=== PATIENT | male | born 1975 | race American Indian/Alaskan Native ===

== ENCOUNTER 2016-12-11 15:46 | Inpatient (IN) | payer SELFPAY ==
--- NOTE | 2016-12-11 16:56 | XRay Report ---
Chest 2 views. History: Chest pain. Findings: The heart, lungs, and pulmonary vessels are within normal limits. Impression: Normal study.
[2016-12-11 17:03] LABS: Hemoglobin 19.1 gm/dl (11.8-15.2); Mean Corpuscular HGB Conc 32 % (32-34); Mean Corpuscular Hemoglobin 29 pg (28-32); Mean Corpuscular Volume 90 fl (84-94); Platelet Count 321 K/mm3 (140-440); Red Blood Count 6.57 M/mm3 (3.65-5.03); Red Cell Distribution Width 14.9 % (13.2-15.2); White Blood Count 10.2 K/mm3 (4.5-11.0)
[2016-12-11 17:06] LABS: INR 0.89 (0.87-1.13)
[2016-12-11 17:07] LABS: Partial Thromboplastin Time 29.7 Sec. (24.2-36.6)
[2016-12-11 17:08] LABS: Sodium TNR mmol/L (137-145)
[2016-12-11 17:09] LABS: Alanine Aminotransferase TNR units/L (7-56); Anion Gap TNR mmol/L; BUN/Creatinine Ratio TNR; Bilirubin,Total TNR mg/dL (0.1-1.2); Blood Urea Nitrogen TNR mg/dL (9-20); Calcium TNR mg/dL (8.4-10.2); Carbon Dioxide TNR mmol/L (22-30); Chloride TNR mmol/L (98-107); Glucose TNR mg/dL (75-100); Potassium TNR mmol/L (3.6-5.0)
[2016-12-11 17:10] LABS: Albumin TNR g/dL (3.9-5); Albumin/Globulin Ratio TNR %; Alkaline Phosphatase TNR units/L (35-129); Lipase TNR units/L (13-60); Total Protein TNR g/dL (6.3-8.2)
[2016-12-11 17:35] LABS: Bilirubin,Urine NEG (Negative); Blood,Urine NEG (Negative); Ketones,Urine NEG (Negative); Leukocyte Esterase,Urine NEG (Negative); Mucus,Urine FEW /HPF; Nitrite,Urine NEG (Negative); Protein,Urine <15 mg/dL mg/dL (Negative); Urobilinogen,Urine < 2.0 mg/dL (<2.0); WBC,Urine < 1.0 /HPF (0.0-6.0)
[2016-12-11 17:38] LABS: Basophils % (Manual) 0 % (0.0-1.8); Blastocytes % (Manual) 0 %; Eosinophils % (Manual) 0 % (0.0-4.3)
[2016-12-11 17:39] LABS: Diff Status Complete; RBC Morphology Normal
[2016-12-11 18:24] LABS: Lipase 35 units/L (13-60)
[2016-12-11 18:38] LABS: Alanine Aminotransferase 28 units/L (7-56); Albumin 4.6 g/dL (3.9-5); Alkaline Phosphatase 81 units/L (35-129); Anion Gap 16 mmol/L; Blood Urea Nitrogen 13 mg/dL (9-20); Calcium 10.1 mg/dL (8.4-10.2); Carbon Dioxide 30 mmol/L (22-30); Chloride 90.2 mmol/L (98-107); Glucose 117 mg/dL (75-100); Potassium 3.7 mmol/L (3.6-5.0); Sodium 132 mmol/L (137-145); Total Protein 9.2 g/dL (6.3-8.2)
[2016-12-11] MEDS ORDERED: NORCO 5/325 PO ONE (20:50)
[2016-12-11] MEDS ORDERED: NORVASC PO ONE (20:50)
[2016-12-11] MEDS ORDERED: ZOFRAN ODT PO ONE (20:50)
[2016-12-11] MEDS ORDERED: NACL 0.9% 1000 ML 1,000 ML IV ONE (20:51)
[2016-12-11] MEDS ORDERED: PEPCID IV ONE (20:52)
[2016-12-11] MEDS ORDERED: ZOFRAN IV ONE (20:52)
--- NOTE | 2016-12-11 22:30 | Cat Scan Report ---
FINAL REPORT EXAM: CT HEAD/BRAIN WO CON HISTORY: Headache, Pressure, dizzy, HTN, TECHNIQUE: CT imaging acquired through the head without intravenous contrast. Transaxial reformations are provided. PRIORS: None. FINDINGS: The ventricles, cisterns and sulci are normal. No intraparenchymal or extra-axial mass, hemorrhage, or mass effect. Dominguez and white-matter differentiation is normal. Normal spherical shape of the globes. Paranasal sinuses and mastoid air cells are clear. No skull or facial fracture visualized. IMPRESSION: No acute intracranial abnormality.
[2016-12-11] MEDS ORDERED: NORMODYNE IV ONE (22:44)
--- NOTE | 2016-12-11 22:51 | Emergency Department Report ---
ED General Adult HPI - General Chief complaint: Chest Pain Stated complaint: CHEST PAIN/VOMITING Time Seen by Provider: 12/11/16 20:18 Source: patient Mode of arrival: Ambulatory Limitations: No Limitations - History of Present Illness Initial comments: 41-year-old male with a past medical history hypertension noncompliant with medications for at least 2 years presents to the hospital with multiple complaints. Complaint 1: headache 4 days. Patient complains of a global headache that is constant for the past 4 days. Patient patient have a sinus drainage and nasal congestion. Patient having intermittent dizziness. No complaints of weakness, numbness, blurred vision. No fever. Complaint #2: Chest pain 3 days. Pain is constant in the sternal area sharp. Worse with movement hiccups, deep inspiration. No complaints of shortness of breath, cough, or fever. Patient is a smoker. Denies family history of CAD. Complaint #3: Vomiting Patient states he has had nausea and vomiting for the last 3 days. On average 2 -3 times a day after eating. Denies abdominal pain, fever, hematemesis, hematochezia, diarrhea, recent travel. Patient does not have a primary care doctor Severity scale (0 -10): 10 - Related Data Home Medications Medication Instructions Recorded Confirmed Last Taken No Known Home Medications [No 12/11/16 12/11/16 Unknown Reported Home Medications] Allergies Allergy/AdvReac Type Severity Reaction Status Date / Time No Known Allergies Allergy Verified 12/11/16 16:16 ED Review of Systems ROS: Stated complaint: CHEST PAIN/VOMITING Other details as noted in HPI Comment: All other systems reviewed and negative Other: Constitutional: No fevers chills Eyes: No eye pain visual changes ENT: No ear pain or throat pain Neck: Denies pain Respiratory: Denies cough wheezing shortness of breath Cardiovascular: as per hpi GI: Denies abdominal pain, diarrhea : Denies dysuria, urinary frequency, or urgency Musculoskeletal: Denies back pain, joint swelling Skin: Denies rash, lesions, erythema Neurologic: as per hpi Psychiatric: Denies suicidal ideation, hallucinations ED Past Medical Hx - Past Medical History Previous Medical History?: Yes Hx Hypertension: Yes (Non compliant Rx) - Surgical History Past Surgical History?: No - Social History Smoking Status: Never Smoker Substance Use Type: None - Medications Home Medications: Home Medications Medication Instructions Recorded Confirmed Last Taken Type No Known Home Medications [No 12/11/16 12/11/16 Unknown History Reported Home Medications] ED Physical Exam - General Limitations: No Limitations - Other Other exam information: General: No limitations, patient is alert in no acute distress Head exam: Atraumatic, normocephalic Eyes exam: Normal appearance, pupils equal reactive to light, extraocular movements intact ENT: Moist mucous membrane, normal oropharynx Neck exam: Normal inspection, full range of motion, no meningismus nontender Respiratory exam: Clear to auscultation bilateral, no wheezes, rales, crackles Cardiovascular: Normal rate and rhythm, sternal tenderness reproducible on palpation Abdomen: Soft, nondistended, and nontender, with normal bowel sounds, no rebound, or guarding Extremity: Full range of motion normal inspection no deformity, no calf tenderness or edema Back: Normal Inspection, full range of motion, no tenderness Neurologic: Alert, oriented x3, cranial nerves intact, no motor or sensory deficit Psychiatric: normal affect, normal mood Skin: Warm, dry, intact ED Course Vital Signs 12/11/16 12/11/16 12/11/16 16:22 19:56 20:00 Temperature 98.4 F Pulse Rate 88 78 Respiratory 18 13 18 Rate Blood Pressure 151/105 Blood Pressure 148/100 [Right] O2 Sat by Pulse 100 Oximetry 12/11/16 12/11/16 12/11/16 20:07 20:11 20:21 Temperature Pulse Rate 83 80 81 Respiratory 15 8 L 17 Rate Blood Pressure 151/105 156/105 Blood Pressure 143/109 [Right] O2 Sat by Pulse 97 95 95 Oximetry 12/11/16 20:30 Temperature Pulse Rate 80 Respiratory 20 Rate Blood Pressure 151/107 Blood Pressure [Right] O2 Sat by Pulse Oximetry - Reevaluation(s) Reevaluation #1: 12/11/16 23:11 Patient given IV Zofran, by mouth Norvasc, [place], and normal saline. Additional labetalol IV ordered for persistent mild hypertension - Consultations Consultation #1: 12/11/16 23:07 [place] station helper consult regarding elevated hemoglobin. Agrees with hydration, admission, repeat CBC in a.m. ED Medical Decision Making - Lab Data Result diagrams: 12/11/16 16:20 12/11/16 17:57 Lab Results 12/11/16 12/11/16 12/11/16 Range/Units 16:20 16:20 16:20 WBC 10.2 (4.5-11.0) K/mm3 RBC 6.57 H (3.65-5.03) M/mm3 Hgb 19.1 H (11.8-15.2) gm/dl Hct 59.0 H (35.5-45.6) % MCV 90 (84-94) fl MCH 29 (28-32) pg MCHC 32 (32-34) % RDW 14.9 (13.2-15.2) % Plt Count 321 (140-440) K/mm3 Lymph % (Auto) [employer] [place] % (Auto) Wing Commander Eos % (Auto) Wing Commander Baso % (Auto) Wing Commander Lymph # Wing Commander [place] # Wing Commander Eos # Wing Commander Baso # Wing Commander Add Manual Diff Complete Total Counted 100 Seg Neutrophils % Wing Commander Seg Neuts % (Manual) 40.0 (40.0-70.0) % Band Neutrophils % 0 % Lymphocytes % (Manual) 44.0 H (13.4-35.0) % Reactive Lymphs % (Man) 4.0 % Monocytes % (Manual) 12.0 H (0.0-7.3) % Eosinophils % (Manual) 0 (0.0-4.3) % Basophils % (Manual) 0 (0.0-1.8) % Metamyelocytes % 0 % Myelocytes % 0 % Promyelocytes % 0 % Blast Cells % 0 % Nucleated RBC % Not Reportable Seg Neutrophils # Wing Commander Seg Neutrophils # Man 4.1 (1.8-7.7) K/mm3 Band Neutrophils # 0.0 K/mm3 Lymphocytes # (Manual) 4.5 (1.2-5.4) K/mm3 Abs React Lymphs (Man) 0.4 K/mm3 Monocytes # (Manual) 1.2 H (0.0-0.8) K/mm3 Eosinophils # (Manual) 0.0 (0.0-0.4) K/mm3 Basophils # (Manual) 0.0 (0.0-0.1) K/mm3 Metamyelocytes # 0.0 K/mm3 Myelocytes # 0.0 K/mm3 Promyelocytes # 0.0 K/mm3 Blast Cells # 0.0 K/mm3 WBC Morphology Not Reportable Hypersegmented Neuts Not Reportable Hyposegmented Neuts Not Reportable Hypogranular Neuts Not Reportable Smudge Cells Not Reportable Toxic Granulation Not Reportable Toxic Vacuolation Not Reportable Dohle Bodies Not Reportable Pelger-Huet Anomaly Not Reportable Flakito Rods Not Reportable Platelet Estimate Not Reportable Clumped Platelets Not Reportable Plt Clumps, EDTA Not Reportable Large Platelets Not Reportable Giant Platelets Not Reportable Platelet Satelliting Not Reportable Plt Morphology Comment Not Reportable RBC Morphology Normal Dimorphic RBCs Not Reportable Polychromasia Not Reportable Hypochromasia Not Reportable Poikilocytosis Not Reportable Anisocytosis Not Reportable Microcytosis Not Reportable Macrocytosis Not Reportable Spherocytes Not Reportable Pappenheimer Bodies Not Reportable Sickle Cells Not Reportable Target Cells Not Reportable Tear Drop Cells Not Reportable Ovalocytes Not Reportable Helmet Cells Not Reportable [place] Bodies Not Reportable [place] Rings Not Reportable [place]manuel Cells Not Reportable Bite Cells Not Reportable Crenated Cell Not Reportable Elliptocytes Not Reportable Acanthocytes (Spur) Not Reportable Rouleaux Not Reportable Hemoglobin C Crystals Not Reportable Schistocytes Not Reportable Malaria parasites Not Reportable Eliecer Bodies Not Reportable Hem Pathologist Commnt No PT 12.5 (12.2-14.9) Sec. INR 0.89 (0.87-1.13) APTT 29.7 (24.2-36.6) Sec. Sodium TNR Potassium TNR Chloride TNR Carbon Dioxide TNR Anion Gap TNR BUN TNR Creatinine TNR Estimated GFR TNR BUN/Creatinine Ratio TNR Glucose TNR Calcium TNR Total Bilirubin TNR AST TNR ALT TNR Alkaline Phosphatase TNR Troponin T TNR Total Protein TNR Albumin TNR Albumin/Globulin Ratio TNR Lipase TNR Urine Color (Yellow) Urine Turbidity (Clear) Urine pH (5.0-7.0) Ur Specific [place] (1.003-1.030) Urine Protein (Negative) mg/dL Urine Glucose (UA) (Negative) mg/dL Urine Ketones (Negative) mg/dL Urine Blood (Negative) Urine Nitrite (Negative) Urine Bilirubin (Negative) Urine Urobilinogen (<2.0) mg/dL Ur Leukocyte Esterase (Negative) Urine WBC (Auto) (0.0-6.0) /HPF Urine RBC (Auto) (0.0-6.0) /HPF U Epithel Cells (Auto) (0-13.0) /HPF Urine Mucus /HPF 12/11/16 12/11/16 12/11/16 Range/Units 16:35 17:57 17:57 WBC (4.5-11.0) K/mm3 RBC (3.65-5.03) M/mm3 Hgb (11.8-15.2) gm/dl Hct (35.5-45.6) % MCV (84-94) fl MCH (28-32) pg MCHC (32-34) % RDW (13.2-15.2) % Plt Count (140-440) K/mm3 Lymph % (Auto) [place] % (Auto) Eos % (Auto) Baso % (Auto) Lymph # [place] # Eos # Baso # Add Manual Diff Total Counted Seg Neutrophils % Seg Neuts % (Manual) (40.0-70.0) % Band Neutrophils % % Lymphocytes % (Manual) (13.4-35.0) % Reactive Lymphs % (Man) % Monocytes % (Manual) (0.0-7.3) % Eosinophils % (Manual) (0.0-4.3) % Basophils % (Manual) (0.0-1.8) % Metamyelocytes % % Myelocytes % % Promyelocytes % % Blast Cells % % Nucleated RBC % Seg Neutrophils # Seg Neutrophils # Man (1.8-7.7) K/mm3 Band Neutrophils # K/mm3 Lymphocytes # (Manual) (1.2-5.4) K/mm3 Abs React Lymphs (Man) K/mm3 Monocytes # (Manual) (0.0-0.8) K/mm3 Eosinophils # (Manual) (0.0-0.4) K/mm3 Basophils # (Manual) (0.0-0.1) K/mm3 Metamyelocytes # K/mm3 Myelocytes # K/mm3 Promyelocytes # K/mm3 Blast Cells # K/mm3 WBC Morphology Hypersegmented Neuts Hyposegmented Neuts Hypogranular Neuts Smudge Cells Toxic Granulation Toxic Vacuolation Dohle Bodies Pelger-Huet Anomaly Flakito Rods Platelet Estimate Clumped Platelets Plt Clumps, EDTA Large Platelets Giant Platelets Platelet Satelliting Plt Morphology Comment RBC Morphology Dimorphic RBCs Polychromasia Hypochromasia Poikilocytosis Anisocytosis Microcytosis Macrocytosis Spherocytes Pappenheimer Bodies Sickle Cells Target Cells Tear Drop Cells Ovalocytes Helmet Cells [place] Bodies [place] Rings Amanuel Cells Bite Cells Crenated Cell Elliptocytes Acanthocytes (Spur) Rouleaux Hemoglobin C Crystals Schistocytes Malaria parasites Eliecer Bodies Hem Pathologist Commnt PT (12.2-14.9) Sec. INR (0.87-1.13) APTT (24.2-36.6) Sec. Sodium 132 L Potassium 3.7 Chloride 90.2 L Carbon Dioxide 30 Anion Gap 16 BUN 13 Creatinine 1.0 Estimated GFR > 60 BUN/Creatinine Ratio 13.00 Glucose 117 H Calcium 10.1 Total Bilirubin 0.60 AST 22 ALT 28 Alkaline Phosphatase 81 Troponin T < 0.010 Total Protein 9.2 H Albumin 4.6 Albumin/Globulin Ratio 1.0 Lipase 35 Urine Color Yellow (Yellow) Urine Turbidity Clear (Clear) Urine pH 7.0 (5.0-7.0) Ur Specific [place] 1.020 (1.003-1.030) Urine Protein <15 mg/dl (Negative) mg/dL Urine Glucose (UA) Neg (Negative) mg/dL Urine Ketones Neg (Negative) mg/dL Urine Blood Neg (Negative) Urine Nitrite Neg (Negative) Urine Bilirubin Neg (Negative) Urine Urobilinogen < 2.0 (<2.0) mg/dL Ur Leukocyte Esterase Neg (Negative) Urine WBC (Auto) < 1.0 (0.0-6.0) /HPF Urine RBC (Auto) 3.0 (0.0-6.0) /HPF U Epithel Cells (Auto) < 1.0 (0-13.0) /HPF Urine Mucus Few /HPF 07//17 Range/Units 21:10 WBC (4.5-11.0) K/mm3 RBC (3.65-5.03) M/mm3 Hgb (11.8-15.2) gm/dl Hct (35.5-45.6) % MCV (84-94) fl MCH (28-32) pg MCHC (32-34) % RDW (13.2-15.2) % Plt Count (140-440) K/mm3 Lymph % (Auto) [place] % (Auto) Eos % (Auto) Baso % (Auto) Lymph # [place] # Eos # Baso # Add Manual Diff Total Counted Seg Neutrophils % Seg Neuts % (Manual) (40.0-70.0) % Band Neutrophils % % Lymphocytes % (Manual) (13.4-35.0) % Reactive Lymphs % (Man) % Monocytes % (Manual) (0.0-7.3) % Eosinophils % (Manual) (0.0-4.3) % Basophils % (Manual) (0.0-1.8) % Metamyelocytes % % Myelocytes % % Promyelocytes % % Blast Cells % % Nucleated RBC % Seg Neutrophils # Seg Neutrophils # Man (1.8-7.7) K/mm3 Band Neutrophils # K/mm3 Lymphocytes # (Manual) (1.2-5.4) K/mm3 Abs React Lymphs (Man) K/mm3 Monocytes # (Manual) (0.0-0.8) K/mm3 Eosinophils # (Manual) (0.0-0.4) K/mm3 Basophils # (Manual) (0.0-0.1) K/mm3 Metamyelocytes # K/mm3 Myelocytes # K/mm3 Promyelocytes # K/mm3 Blast Cells # K/mm3 WBC Morphology Hypersegmented Neuts Hyposegmented Neuts Hypogranular Neuts Smudge Cells Toxic Granulation Toxic Vacuolation Dohle Bodies Pelger-Huet Anomaly Flakito Rods Platelet Estimate Clumped Platelets Plt Clumps, EDTA Large Platelets Giant Platelets Platelet Satelliting Plt Morphology Comment RBC Morphology Dimorphic RBCs Polychromasia Hypochromasia Poikilocytosis Anisocytosis Microcytosis Macrocytosis Spherocytes Pappenheimer Bodies Sickle Cells Target Cells Tear Drop Cells Ovalocytes Helmet Cells [place] Bodies [place] Rings [place] Cells Bite Cells Crenated Cell Elliptocytes Acanthocytes (Spur) Rouleaux Hemoglobin C Crystals Schistocytes Malaria parasites Eliecer Bodies Hem Pathologist Commnt PT (12.2-14.9) Sec. INR (0.87-1.13) APTT (24.2-36.6) Sec. Sodium Potassium Chloride Carbon Dioxide Anion Gap BUN Creatinine Estimated GFR BUN/Creatinine Ratio Glucose Calcium Total Bilirubin AST ALT Alkaline Phosphatase Troponin T < 0.010 Total Protein Albumin Albumin/Globulin Ratio Lipase Urine Color (Yellow) Urine Turbidity (Clear) Urine pH (5.0-7.0) Ur Specific [place] (1.003-1.030) Urine Protein (Negative) mg/dL Urine Glucose (UA) (Negative) mg/dL Urine Ketones (Negative) mg/dL Urine Blood (Negative) Urine Nitrite (Negative) Urine Bilirubin (Negative) Urine Urobilinogen (<2.0) mg/dL Ur Leukocyte Esterase (Negative) Urine WBC (Auto) (0.0-6.0) /HPF Urine RBC (Auto) (0.0-6.0) /HPF U Epithel Cells (Auto) (0-13.0) /HPF Urine Mucus /HPF - EKG Data -: EKG Interpreted by Me (sinus rhythm rate [address] elevation or T-wave inversion) - Radiology Data Radiology results: report reviewed Chest x-ray: No acute findings CT head: No acute findings - Medical Decision Making Patient has elevated hemoglobin. Concern for either relative polycythemia or primary polycythemia. Patient has been vomiting so by depletion is also a possibility. Patient has a high specific gravity with but has no ketones and has a normal BUN/creatinine ratio. Patient also concerning for possible COPD/ smoking as a cause however, patient has a normal O2 sats duration and no reported history of COPD. Given patient's symptoms he'll be admitted to the hospital for further treatment and reassessment. I suspect that chest pain is musculoskeletal related to costochondritis since it is reproducible. Patient has unremarkable EKG and negative cardiac enzymes. - Differential Diagnosis intracranial hemorrhage, hypertensive headache, gastritis, [place], costochondri Critical Care Time: No Critical care attestation.: If time is entered above; I have spent that time in minutes in the direct care of this critically ill patient, excluding procedure time. ED Disposition Clinical Impression: Elevated hemoglobin, Headache, HTN (hypertension), Costochondral pain, Noncompliance with medication regimen, Vomiting, Smoker Disposition: OP ADMIT IP TO THIS HOSP Is pt being admited?: Yes Condition: Stable Time of Disposition: 23:12 (Dr Jimenez/hosp)
--- NOTE | 2016-12-11 23:52 | History and Physical Report ---
History of Present Illness Date of examination: 12/11/16 History of present illness: 40-year-old man with a history of hypertension, noncompliant with medication 1- year-old comes emergency room with complaints of chest pain. Pain is in the epigastric area which he describes as a sharp pain, started on Wednesday, intermittent, every 5 minutes, intensity 5/10, no radiation any cannot identify exacerbating or relieving factors. Admits to nausea vomiting, no shortness breath diaphoresis or palpitation. Also complaining of headache all over his head and eye Patient denies cough, abdominal pain, hematochezia, dysuria, frequency, focal weakness, dysarthria, fever chills, polydipsia polyuria, hot or cold intolerance , easy bruisability, or rash or bleeding from mucosal membrane, rhinorrhea, epistaxis, earache, tinnitus, blurry vision, eye discharge, anxiety, depression. Other review of systems negative PAST SURGICAL HISTORY: None SOCIAL HISTORY: Smoke a pack a day, alcohol use, no drugs FAMILY HISTORY: Hypertension Medications and Allergies Allergies Allergy/AdvReac Type Severity Reaction Status Date / Time No Known Allergies Allergy Verified 12/11/16 16:16 Home Medications Medication Instructions Recorded Confirmed Last Taken Type No Known Home Medications [No 12/11/16 12/11/16 Unknown History Reported Home Medications] Exam - Physical Exam Narrative exam: Gen. appearance: Patient lying in bed, no apparent distress HEENT: Normocephalic, atraumatic, pupils equally round and reactive to light, extraocular movement intact, and no sclericterus,. No JVD or thyromegaly or nodule,neck supple, no carotid bruit ,mucous membranes moist, no exudate or erythema Heart: S1, S2, regular rate and rhythm Lungs: Clear to auscultation bilaterally, breathing comfortable Abdomen: Positive bowel sounds, nontender, nondistended, no organomegaly Extremity: No edema, cyanosis, clubbing Skin: No rash, nodules, warm, dry Neuro: Oriented 3, cranial nerves II-12 intact, speech is fluent, motor and sensory intact - Constitutional Vitals: Temp Pulse Resp BP Pulse Ox 98.4 F 80 20 151/107 95 12/11/16 16:22 12/11/16 20:30 12/11/16 20:30 12/11/16 20:30 12/11/16 20:21 Results - Labs CBC & Chem 7: 12/12/16 09:43 12/12/16 07:52 Labs: Abnormal lab results 12/11/16 12/11/16 Range/Units 16:20 17:57 RBC 6.57 H (3.65-5.03) M/mm3 Hgb 19.1 H (11.8-15.2) gm/dl Hct 59.0 H (35.5-45.6) % Lymphocytes % (Manual) 44.0 H (13.4-35.0) % Monocytes % (Manual) 12.0 H (0.0-7.3) % Monocytes # (Manual) 1.2 H (0.0-0.8) K/mm3 Sodium 132 L (137-145) mmol/L Chloride 90.2 L (98-107) mmol/L Glucose 117 H (75-100) mg/dL Total Protein 9.2 H (6.3-8.2) g/dL - Imaging and Cardiology EKG: image reviewed Chest x-ray: image reviewed CT Scan - head: report reviewed Assessment and Plan Hypertensive urgency, Chest pain secondary to #1 Headache secondary to #1 Secondary Polycythemia vera Admit to medicine Start IV hydralazine, Norvasc Cardiac enzymes, lipid profile, stress test Smoking cessation discussed with patient, oncology to see patient Start DVT prophylaxis
[2016-12-12] MEDS ORDERED: APRESOLINE IV PRN (00:11)
[2016-12-12 08:33] LABS: Creatine Kinase 199 units/L (55-170)
[2016-12-12 08:35] LABS: Creatine Kinase MB < 1.0 ng/mL (0.0-4.0)
[2016-12-12 09:36] LABS: Urine Drugs of Abuse Note Disclamer
[2016-12-12] MEDS: LOVENOX SUB-Q SCH (09:46)
[2016-12-12] MEDS: NORVASC PO SCH (09:46)
[2016-12-12 09:53] LABS: Hematocrit 52.1 % (35.5-45.6); Hemoglobin 16.8 gm/dl (11.8-15.2); Mean Corpuscular HGB Conc 32 % (32-34); Mean Corpuscular Hemoglobin 29 pg (28-32); Mean Corpuscular Volume 89 fl (84-94); Platelet Count 328 K/mm3 (140-440); Red Blood Count 5.88 M/mm3 (3.65-5.03); Red Cell Distribution Width 14.4 % (13.2-15.2); White Blood Count 10.3 K/mm3 (4.5-11.0)
[2016-12-12] MEDS ORDERED: NORVASC PO SCH (10:00)
[2016-12-12] MEDS ORDERED: LOVENOX SUB-Q SCH (10:00)
[2016-12-12 10:05] LABS: BUN/Creatinine Ratio 10.83; Blood Urea Nitrogen 13 mg/dL (9-20); Calcium 9.3 mg/dL (8.4-10.2); Carbon Dioxide 22 mmol/L (22-30); Glucose 98 mg/dL (75-100); Potassium 4.4 mmol/L (3.6-5.0); Sodium 135 mmol/L (137-145)
[2016-12-12 10:09] LABS: Anion Gap 22 mmol/L
--- NOTE | 2016-12-12 10:28 | Progress Note ---
Assessment and Plan Assessment and plan: Chest pain. To rule out acute coronary syndrome. Start Aspirin. For stress test tomorrow. Hypertensive urgency. Blood Pressure improved on starting Norvasc. Continue Norvasc daily. Will titrate to control BP. DVT prophylaxis with Lovenox Full CODE STATUS. History Interval history: chest pain, no shortness of breath Hospitalist Physical - Physical exam Narrative exam: Gen Appearance: No acute distress, HEENT: normocephalic, atraumatic Neck: supple, no JVD Lungs: clear to auscultation bilaterally, no crackles or wheezes Heart: S1 and S2 regular, no murmurs or gallop Abdomen: Soft, non-tender, non-distended, normal bowel sounds Extremity: No edema, clubbing or cyanosis Neuro : Awake, alert,oriented x3, no focal neurological signs Psych :normal mood,calm - Constitutional Vitals: Temp Pulse Resp BP Pulse Ox 98.1 F 68 18 127/65 99 12/12/16 08:47 12/12/16 09:46 12/12/16 08:47 12/12/16 09:46 12/12/16 08:47 Results - Labs CBC & Chem 7: 12/12/16 09:43 12/12/16 07:52 Labs: Laboratory Last Values WBC 10.3 K/mm3 (4.5-11.0) 12/12/16 09:43 RBC 5.88 M/mm3 (3.65-5.03) H 12/12/16 09:43 Hgb 16.8 gm/dl (11.8-15.2) H 12/12/16 09:43 Hct 52.1 % (35.5-45.6) H D 12/12/16 09:43 MCV 89 fl (84-94) 12/12/16 09:43 MCH 29 pg (28-32) 12/12/16 09:43 MCHC 32 % (32-34) 12/12/16 09:43 RDW 14.4 % (13.2-15.2) 12/12/16 09:43 Plt Count 328 K/mm3 (140-440) 12/12/16 09:43 Lymph % (Auto) Program Director/Air Personality 12/11/16 16:20 Morton % (Auto) Program Director/Air Personality 12/11/16 16:20 Eos % (Auto) Program Director/Air Personality 12/11/16 16:20 Baso % (Auto) Program Director/Air Personality 12/11/16 16:20 Lymph # Program Director/Air Personality 12/11/16 16:20 Morton # Program Director/Air Personality 12/11/16 16:20 Eos # Program Director/Air Personality 12/11/16 16:20 Baso # Program Director/Air Personality 12/11/16 16:20 Add Manual Diff Complete 12/11/16 16:20 Total Counted 100 12/11/16 16:20 Seg Neutrophils % Program Director/Air Personality 12/11/16 16:20 Seg Neuts % (Manual) 40.0 % (40.0-70.0) 12/11/16 16:20 Band Neutrophils % 0 % 12/11/16 16:20 Lymphocytes % (Manual) 44.0 % (13.4-35.0) H 12/11/16 16:20 Reactive Lymphs % (Man) 4.0 % 12/11/16 16:20 Monocytes % (Manual) 12.0 % (0.0-7.3) H 12/11/16 16:20 Eosinophils % (Manual) 0 % (0.0-4.3) 12/11/16 16:20 Basophils % (Manual) 0 % (0.0-1.8) 12/11/16 16:20 Metamyelocytes % 0 % 12/11/16 16:20 Myelocytes % 0 % 12/11/16 16:20 Promyelocytes % 0 % 12/11/16 16:20 Blast Cells % 0 % 12/11/16 16:20 Nucleated RBC % Not Reportable 12/11/16 16:20 Seg Neutrophils # Program Director/Air Personality 12/11/16 16:20 Seg Neutrophils # Man 4.1 K/mm3 (1.8-7.7) 12/11/16 16:20 Band Neutrophils # 0.0 K/mm3 12/11/16 16:20 Lymphocytes # (Manual) 4.5 K/mm3 (1.2-5.4) 12/11/16 16:20 Abs React Lymphs (Man) 0.4 K/mm3 12/11/16 16:20 Monocytes # (Manual) 1.2 K/mm3 (0.0-0.8) H 12/11/16 16:20 Eosinophils # (Manual) 0.0 K/mm3 (0.0-0.4) 12/11/16 16:20 Basophils # (Manual) 0.0 K/mm3 (0.0-0.1) 12/11/16 16:20 Metamyelocytes # 0.0 K/mm3 12/11/16 16:20 Myelocytes # 0.0 K/mm3 12/11/16 16:20 Promyelocytes # 0.0 K/mm3 12/11/16 16:20 Blast Cells # 0.0 K/mm3 12/11/16 16:20 WBC Morphology Not Reportable 12/11/16 16:20 Hypersegmented Neuts Not Reportable 12/11/16 16:20 Hyposegmented Neuts Not Reportable 12/11/16 16:20 Hypogranular Neuts Not Reportable 12/11/16 16:20 Smudge Cells Not Reportable 12/11/16 16:20 Toxic Granulation Not Reportable 12/11/16 16:20 Toxic Vacuolation Not Reportable 12/11/16 16:20 Dohle Bodies Not Reportable 12/11/16 16:20 Pelger-Huet Anomaly Not Reportable 12/11/16 16:20 Flakito Rods Not Reportable 12/11/16 16:20 Platelet Estimate Not Reportable 12/11/16 16:20 Clumped Platelets Not Reportable 12/11/16 16:20 Plt Clumps, EDTA Not Reportable 12/11/16 16:20 Large Platelets Not Reportable 12/11/16 16:20 Giant Platelets Not Reportable 12/11/16 16:20 Platelet Satelliting Not Reportable 12/11/16 16:20 Plt Morphology Comment Not Reportable 12/11/16 16:20 RBC Morphology Normal 12/11/16 16:20 Dimorphic RBCs Not Reportable 12/11/16 16:20 Polychromasia Not Reportable 12/11/16 16:20 Hypochromasia Not Reportable 12/11/16 16:20 Poikilocytosis Not Reportable 12/11/16 16:20 Anisocytosis Not Reportable 12/11/16 16:20 Microcytosis Not Reportable 12/11/16 16:20 Macrocytosis Not Reportable 12/11/16 16:20 Spherocytes Not Reportable 12/11/16 16:20 Pappenheimer Bodies Not Reportable 12/11/16 16:20 Sickle Cells Not Reportable 12/11/16 16:20 Target Cells Not Reportable 12/11/16 16:20 Tear Drop Cells Not Reportable 12/11/16 16:20 Ovalocytes Not Reportable 12/11/16 16:20 Helmet Cells Not Reportable 12/11/16 16:20 [place] Bodies Not Reportable 12/11/16 16:20 [place] Rings Not Reportable 12/11/16 16:20 Amanuel Cells Not Reportable 12/11/16 16:20 Bite Cells Not Reportable 12/11/16 16:20 Crenated Cell Not Reportable 12/11/16 16:20 Elliptocytes Not Reportable 12/11/16 16:20 Acanthocytes (Spur) Not Reportable 12/11/16 16:20 Rouleaux Not Reportable 12/11/16 16:20 Hemoglobin C Crystals Not Reportable 12/11/16 16:20 Schistocytes Not Reportable 12/11/16 16:20 Malaria parasites Not Reportable 12/11/16 16:20 Eliecer Bodies Not Reportable 12/11/16 16:20 Hem Pathologist Commnt No 12/11/16 16:20 PT 12.5 Sec. (12.2-14.9) 12/11/16 16:20 INR 0.89 (0.87-1.13) 12/11/16 16:20 APTT 29.7 Sec. (24.2-36.6) 12/11/16 16:20 Sodium 135 mmol/L (137-145) L 12/12/16 07:52 Potassium 4.4 mmol/L (3.6-5.0) 12/12/16 07:52 Chloride 95.0 mmol/L (98-107) L 12/12/16 07:52 Carbon Dioxide 22 mmol/L (22-30) D 12/12/16 07:52 Anion Gap 22 mmol/L 12/12/16 07:52 BUN 13 mg/dL (9-20) 12/12/16 07:52 Creatinine 1.2 mg/dL (0.8-1.5) 12/12/16 07:52 Estimated GFR > 60 ml/min 12/12/16 07:52 BUN/Creatinine Ratio 10.83 % 12/12/16 07:52 Glucose 98 mg/dL (75-100) 12/12/16 07:52 Calcium 9.3 mg/dL (8.4-10.2) 12/12/16 07:52 Total Bilirubin 0.60 mg/dL (0.1-1.2) 12/11/16 17:57 AST 22 units/L (5-40) 12/11/16 17:57 ALT 28 units/L (7-56) 12/11/16 17:57 Alkaline Phosphatase 81 units/L (35-129) 12/11/16 17:57 Total Creatine Kinase 199 units/L (55-170) H 12/12/16 07:52 CK-MB (CK-2) < 1.0 ng/mL (0.0-4.0) 12/12/16 07:52 CK-MB (CK-2) Rel Index 0.5 (0-4) 12/12/16 07:52 Troponin T < 0.010 ng/mL (0.00-0.029) 12/12/16 07:52 Total Protein 9.2 g/dL (6.3-8.2) H 12/11/16 17:57 Albumin 4.6 g/dL (3.9-5) 12/11/16 17:57 Albumin/Globulin Ratio 1.0 % 12/11/16 17:57 Triglycerides 106 mg/dL (2-149) 12/12/16 07:52 Cholesterol 195 mg/dL (50-199) 12/12/16 07:52 LDL Cholesterol Direct 125 mg/dL (50-130) 12/12/16 07:52 HDL Cholesterol 49 mg/dL (40-59) 12/12/16 07:52 Cholesterol/HDL Ratio 3.97 % 12/12/16 07:52 Lipase 35 units/L (13-60) 12/11/16 17:57 Urine Color Yellow (Yellow) 12/11/16 16:35 Urine Turbidity Clear (Clear) 12/11/16 16:35 Urine pH 7.0 (5.0-7.0) 12/11/16 16:35 Ur Specific [place] 1.020 (1.003-1.030) 12/11/16 16:35 Urine Protein <15 mg/dl mg/dL (Negative) 12/11/16 16:35 Urine Glucose (UA) Neg mg/dL (Negative) 12/11/16 16:35 Urine Ketones Neg mg/dL (Negative) 12/11/16 16:35 Urine Blood Neg (Negative) 12/11/16 16:35 Urine Nitrite Neg (Negative) 12/11/16 16:35 Urine Bilirubin Neg (Negative) 12/11/16 16:35 Urine Urobilinogen < 2.0 mg/dL (<2.0) 12/11/16 16:35 Ur Leukocyte Esterase Neg (Negative) 12/11/16 16:35 Urine WBC (Auto) < 1.0 /HPF (0.0-6.0) 12/11/16 16:35 Urine RBC (Auto) 3.0 /HPF (0.0-6.0) 12/11/16 16:35 U Epithel Cells (Auto) < 1.0 /HPF (0-13.0) 12/11/16 16:35 Urine Mucus Few /HPF 12/11/16 16:35 Urine Opiates Screen Presumptive negative 12/12/16 09:00 Urine Methadone Screen Presumptive negative 12/12/16 09:00 Ur Barbiturates Screen Presumptive negative 12/12/16 09:00 Ur Phencyclidine Scrn Presumptive negative 12/12/16 09:00 U Benzodiazepines Scrn Presumptive negative 12/12/16 09:00 Urine Cocaine Screen Presumptive negative 12/12/16 09:00 U Marijuana (THC) Screen Presumptive negative 12/12/16 09:00
[2016-12-12] MEDS: PEPCID PO SCH ×2 (11:58→22:29)
[2016-12-12] MEDS: ASPIRIN PO SCH (17:28)
[2016-12-13] MEDS ORDERED: LEXISCAN IV ONE ×2 (08:09→08:40)
--- NOTE | 2016-12-13 10:21 | Discharge Summary ---
Providers - Providers Date of Admission: 12/11/16 23:42 Date of discharge: 12/13/16 Attending physician: JOSÉ MANUEL LIPSCOMB Primary care physician: CIRA RICHARD MD Hospitalization Condition: Good Hospital course: Patient is 41-year-old with history of hypertension, noncompliant. He has not taken his medications in years. He presents with chest pain and headache. In emergency department blood pressure was 151/105. Initial troponin was normal. He was given aspirin for chest pain and admitted to rule out acute coronary syndrome. Stress test was done and was normal. He was put on Norvasc sceduled and Hydralazine iv prn and blood pressure was controlled. With negative stress test he was discharged home on 12/13/16. Chest pain due to GERD. He had a previous history of GERD. Total time spent on discharge, 32 minutes Disposition: DC-01 TO HOME OR SELFCARE - Discharge Diagnoses (1) Chest pain Status: Acute Qualifiers: Chest pain type: C Ischemic chest pain type: I Comment: due to GERD (2) GERD without esophagitis Status: Acute (3) Hypertensive urgency Status: Acute Core Measure Documentation - Palliative Care Palliative Care/ Comfort Measures: Not Applicable - Core Measures Any of the following diagnoses?: none Exam - Physical Exam Narrative exam: Gen Appearance: No acute distress, HEENT: normocephalic, atraumatic Neck: supple, no JVD Lungs: clear to auscultation bilaterally, no crackles or wheezes Heart: S1 and S2 regular, no murmurs or gallop Abdomen: Soft, non-tender, non-distended, normal bowel sounds Extremity: No edema, clubbing or cyanosis Neuro : Awake, alert,oriented x3, no focal neurological signs Psych :normal mood,calm - Constitutional Vitals: Temp Pulse Resp BP Pulse Ox 98.0 F 64 18 143/97 98 12/13/16 08:20 12/13/16 08:20 12/13/16 08:20 12/13/16 08:20 12/13/16 08:20 Plan Activity: no restrictions Diet: low fat, low cholesterol, low salt Additional Instructions: 1.Follow up with PCP or [facility] in 1 week Follow up with: PRIMARY CARE, [Primary Care Provider] - 7 Days Forms: Work/School Release Form(ED) Prescriptions: amLODIPine [Norvasc] 10 mg PO DAILY #30 tab Famotidine [Pepcid] 20 mg PO BID #60 tablet
[2016-12-13] MEDS ORDERED: FLONASE NS SCH (11:00)
[2016-12-13] MEDS: LOVENOX SUB-Q SCH (11:16)
[2016-12-13] MEDS: NORVASC PO SCH (11:16)
[2016-12-13] MEDS: ASPIRIN PO SCH (11:16)
[2016-12-13] MEDS: PEPCID PO SCH (11:17)
[2016-12-13 14:25] VITALS: BP 135/86
[2016-12-13] MEDS ORDERED: TYLENOL PO ONE (15:06)
== END 2016-12-13 15:00 | disposition home or self-care (01) | DRG 392 ==
LOC: ED 15:46 → 4A 23:42
PROVIDERS: ADMIT Internal Medicine; ATTEND Internal Medicine
DX: K21.9 Gastro-esophageal reflux disease without esophagitis (principal); I24.9 Acute ischemic heart disease, unspecified; I16.0 Hypertensive urgency; D45 Polycythemia vera; I10 Essential (primary) hypertension; R51 Headache; F17.210 Nicotine dependence, cigarettes, uncomplicated; Z91.14 Patient's other noncompliance with medication regimen; Z72.89 Other problems related to lifestyle; Z82.49 Family history of ischemic heart disease and other diseases of the circulatory system
CPT/HCPCS: 36415; 70450; 71020; 78452; 80048; 80053; 80061; 80307; 81001; 82550; 82553; 83690; 84484; 85007; 85025; 85027; 85610; 85730; 93005; 93010; 93017; 96374; 96375; A9502; J1650; J2405; J2785; J7030

== ENCOUNTER 2020-04-15 20:41 | Emergency (ER) | payer SELFPAY ==
[2020-04-15 21:15] VITALS: BP 153/114
--- NOTE | 2020-04-15 21:44 | Emergency Department Report ---
ED General Adult HPI - General Chief complaint: Skin/Abscess/Foreign Body Stated complaint: SCABIES Time Seen by Provider: 04/15/20 21:29 Source: patient Mode of arrival: Ambulatory Limitations: No Limitations - History of Present Illness Initial comments: 45-year-old male, history of hypertension, presents to ED reporting exposure to scabies. Patient is requesting cream for treatment. He reports itching to his feet and hands. Patient also reports he is out of his blood pressure medication. -: days(s) (3) Location: left, right, upper extremity, lower extremity Consistency: constant Improves with: none Worsens with: none Associated Symptoms: denies other symptoms - Related Data Previous Rx's Medication Instructions Recorded Last Taken Type Famotidine [Pepcid] 20 mg PO BID #60 tablet 12/13/16 Unknown Rx Permethrin 5% [Acticin 5% CREAM] 1 applicatio TP ONCE #1 tube 04/15/20 Unknown Rx amLODIPine 10 mg PO DAILY #30 tab 04/15/20 Unknown Rx Allergies Allergy/AdvReac Type Severity Reaction Status Date / Time No Known Allergies Allergy Verified 12/11/16 16:16 ED Review of Systems ROS: Stated complaint: SCABIES Other details as noted in HPI Comment: All other systems reviewed and negative Constitutional: denies: fever Skin: rash ED Past Medical Hx - Past Medical History Hx Hypertension: Yes - Surgical History Past Surgical History?: No - Social History Smoking Status: Never Smoker Substance Use Type: None - Medications Home Medications: Home Medications Medication Instructions Recorded Confirmed Last Taken Type Famotidine [Pepcid] 20 mg PO BID #60 tablet 12/13/16 Unknown Rx Permethrin 5% [Acticin 5% CREAM] 1 applicatio TP ONCE #1 tube 04/15/20 Unknown Rx amLODIPine 10 mg PO DAILY #30 tab 04/15/20 Unknown Rx ED Physical Exam - General Limitations: No Limitations General appearance: alert, in no apparent distress - Head Head exam: Present: atraumatic, normocephalic - Eye Eye exam: Present: normal appearance, EOMI - ENT ENT exam: Present: mucous membranes moist - Neck Neck exam: Present: normal inspection - Respiratory Respiratory exam: Present: normal lung sounds bilaterally. Absent: respiratory distress - Cardiovascular Cardiovascular Exam: Present: normal rhythm, tachycardia - GI/Abdominal GI/Abdominal exam: Absent: distended - Extremities Exam Extremities exam: Present: normal inspection - Neurological Exam Neurological exam: Present: alert, oriented X3 - Psychiatric Psychiatric exam: Present: normal affect, normal mood - Skin Skin exam: Present: warm, dry, intact, normal color (No rash appreciated). Absent: rash ED Course Vital Signs 04/15/20 21:15 Temperature 98.3 F Pulse Rate 102 H Respiratory 16 Rate Blood Pressure 153/114 [Left] O2 Sat by Pulse 100 Oximetry ED Medical Decision Making - Medical Decision Making Patient reports possible exposure to scabies. No rash appreciated on exam. Patient given prescription for permethrin cream. Also given a refill for his amlodipine. - Differential Diagnosis Scabies, bedbugs, hypertension Critical care attestation.: If time is entered above; I have spent that time in minutes in the direct care of this critically ill patient, excluding procedure time. ED Disposition Clinical Impression: Uncontrolled hypertension, Scabies exposure Disposition: - TO HOME OR SELFCARE Is pt being admited?: No Condition: Stable Instructions: Hypertension (ED), Managing Your Hypertension, Scabies, Adult, Bedbugs, [id number] Prescriptions: Permethrin 5% [Acticin 5% CREAM] 1 applicatio TP ONCE #1 tube amLODIPine 10 mg PO DAILY #30 tab [facility] [Outside] - 3-5 Days [facility] [Provider Group] - 3-5 Days Time of Disposition: 21:45
== END 2020-04-15 22:15 | disposition home or self-care (01) ==
LOC: ED 20:41
DX: I10 Essential (primary) hypertension (principal); Z79.899 Other long term (current) drug therapy; Z20.89 Contact with and (suspected) exposure to other communicable diseases
CPT/HCPCS: 99282